=== PATIENT | male | born 1985 | race Two or more races ===

== ENCOUNTER 2021-10-12 14:24 | Emergency (ER) | payer SELFPAY ==
--- NOTE | 2021-10-12 14:27 | ED.URI ---
HPI - URI/Sore Throat General Chief Complaint: Upper Respiratory Infection Stated Complaint: drainage,runny nose,stomach ache Time Seen by Provider: 10/12/21 14:33 Source: patient and RN notes reviewed Mode of arrival: ambulatory Limitations: no limitations History of Present Illness HPI Narrative: 46-year-old male presents with concern for 5-day history of nasal drainage, postnasal drainage. He reports today he began having mild nausea with a pit in his stomach . Reports that he has had 2 negative COVID test. He denies fever, body aches, chills, sweats. He denies sore throat, sinus pain. Reports occasional headache. He denies vomiting or diarrhea. Denies constipation. He reports he was taking Sudafed, he has not taken it since yesterday because he ran out. He denies other mpom-nab-mhnqnzo medications. MD elicited complaint: rhinorrhea Related Data Allergies Allergy/AdvReac Type Severity Reaction Status Date / Time No Known Allergies Allergy Verified 10/12/21 14:33 Review of Systems Review of Systems: CONSTITUTIONAL: Denies malaise, chills, sweats, or fever. EYES: Denies visual changes, redness, or discharge. ENT: Reports rhinorrhea, congestion. Denies sinus pain, otalgia and sore throat. CARDIOVASCULAR: Denies chest pain, palpitations, or edema. RESPIRATORY: Reports occasional cough. Denies dyspnea. GASTROINTESTINAL: Reports mild abdominal pain, nausea. Denies vomiting, diarrhea SKIN: Denies rash or itching. MUSCULOSKELETAL: Denies myalgia. NEUROLOGIC: Reports headache. All systems reviewed & are unremarkable except as noted in HPI and below PMFSH Comments At time of signature, agree with nursing past medical, surgical, social and family history. There is no relevant family history pertinent to the presenting complaint Exam Narrative: GENERAL: Well-appearing, well-nourished, and in no acute distress. HEAD: Normocephalic EYES: PERRLA, conjunctivae clear ENT: Nares clear, clear discharge. Mucous membranes moist. TM pearly castanon with sharp light reflex bilaterally; no tragal tenderness. Oropharynx not erythematous without lesions. Tonsils not enlarged and without exudate, no drooling, no hoarseness, no trismus, uvula midline. NECK: Supple. No lymphadenopathy CHEST: Clear to auscultation, breath sounds equal. No wheezing, rhonchi, rales, or stridor. No respiratory distress, speaks in full sentences. HEART: Regular rate and rhythm. No murmur heard. ABDOMEN: Soft, flat, nondistended. Mild epigastric tenderness. No guarding, rebound tenderness, or rigid. No pulsatilla masses. Bowel sounds present in all four quadrants. No organomegaly. Negative Payan?s sign. No periumbilical tenderness. No Supra public tenderness or distension. SKIN: Warm, dry, no rash. NEURO: Alert and oriented x3. PSYCH: Normal mood and affect Course Course Emergency Course: Discussed limited diagnostic capability at [facility] for abdominal pain. Offered transfer to emergency department for further evaluation, patient does not want to be transferred to the emergency department. He understands reasons to seek further care if symptoms worsen. Patient is aware of diagnosis, understands and agrees to treatment plan. Anticipatory guidance given. Patient agrees to follow-up as directed and is aware of reasons to seek care at the emergency department. Portions of this record may have been created with voice recognition software Level of Care: Express Care Visit Vital Signs Vital signs: Reviewed. MDM - URI/Sore Throat MDM Narrative Medical decision making narrative: Differential diagnosis considered: [place] virus, strep pharyngitis, allergic rhinitis, upper respiratory tract infection, sinusitis, rhinosinusitis, nasopharyngitis. viral pharyngitis, otitis media, otitis externa, pneumonia, bronchitis, viral cough syndrome, viral syndrome, and influenza. No evidence of pancreatitis, AAA, cholecystitis, choledocholithiasis, cholangitis, mesenteric
[2021-10-12 14:30] VITALS: BP 137/83; PULSE 78; RESP 12; TEMP 37; O2SAT 100
== END 2021-10-12 14:52 | disposition home or self-care (01) ==
PROVIDERS: Emergency Provider Nurse Practitioner
DX: B34.9 Viral infection, unspecified (principal)
CPT/HCPCS: 99213; G0463

== ENCOUNTER 2024-07-16 15:39 | Emergency (ER) | payer OTHER, SELFPAY ==
--- NOTE | ~2024-07-16 | XR_ITS ---
XR ankle LT min 3V Ordering provider: GENARO Smith History: . Rolled lt ankle yesterday. Lateral pain . Comparison: None. FINDINGS: BONES: No acute fracture or dislocation. JOINT SPACES: The ankle mortise is normal. SOFT TISSUES: Normal. IMPRESSION: No acute osseous abnormality left ankle. Reviewed, dictated and finalized at location A.
[2024-07-16 15:54] VITALS: BP 144/95; PULSE 69; RESP 18; TEMP 36.4; O2SAT 99
--- NOTE | 2024-07-16 17:07 | ED_ITS ---
HPI - General Adult General Chief complaint: Extremity Injury, Lower Stated complaint: Left Ankle Injury Source: patient Mode of arrival: ambulatory Limitations: no limitations History of Present Illness HPI narrative: Patient presents for evaluation of left ankle pain. Symptom onset yesterday. 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 He fell and hit his back against the door knob. He then fell to the ground. He did not hit his head. No LOC. he denies any back pain. He rates his pain in his left ankle is 3/10 severity. He has associated swelling. Denies loss of range of motion but movement makes his symptoms worse. He took Tylenol and 800 mg of ibuprofen. He is not sure whether either made considerable difference in his pain level. He is able to bear weight. Related Data Home Medications ?Medication ?Instructions ?Recorded ?Confirmed ?Last Taken ?Type No Home Medications 07/16/24 07/16/24 Unknown History Allergies Allergy/AdvReac Type Severity Reaction Status Date / Time No Known Allergies Allergy Verified 07/16/24 16:05 Review of Systems Review of Systems: CONSTITUTIONAL: Denies fever, chills, or sweats. EYES: Denies visual changes, redness, or discharge. ENT: Denies rhinorrhea, congestion, sore throat, or otalgia. CARDIOVASCULAR: Denies chest pain, palpitations, or edema. RESPIRATORY: Denies cough or dyspnea. GASTROINTESTINAL: Denies abdominal pain, nausea, vomiting, or diarrhea. GENITOURINARY: Denies dysuria or hematuria. SKIN: Denies rash or itching. MUSCULOSKELETAL: Reports left ankle pain and swelling. Denies other joint pain. NEUROLOGIC: Denies headache, numbness, dizziness, or weakness. PSYCHIATRIC: Denies anxiety or depression. 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 HEAD: Normocephalic, atraumatic. EYES: PERRLA and EOMI. ENT: Nares clear, no rhinorrhea or epistaxis. Mucous membranes moist. Orophar ynx without tonsillar hypertrophy exudate or other lesions. Bilateral TMs pearly castanon nonbulging NECK: Supple. No adenopathy or masses. No carotid bruits or JVD CHEST: Clear to auscultation. No respiratory distress. No wheezes rales or rhonchi HEART: Regular rate and rhythm. No murmur heard. Normal peripheral pulses. ABDOMEN: Soft, nontender, nondistended, normal active bowel sounds. EXTREMITIES:There is trace swelling noted to left ankle. No crepitus or deformity. There is tenderness to anterior aspect of the left ankle. Able to dorsi and plantarflex the left foot but doing so reproduces pain in the left ankle. SKIN: Warm, dry, no rash. NEURO: No focal deficits. Alert and oriented x3. PSYCH: Normal mood and affect. Course Course Emergency Course: This is a 38 yr old male who presented for evaluation of left ankle pain. X ray negative for fracture. Exam is consistent with sprain. Recommend NSAIDs for pain. Advised on RICE therapy. Provided with Al wrap. Follow-up with primary provider. Go to the ER for worsening symptoms. Patient in agreement with plan of care. Level of Care: Express Care Visit Vital Signs Vital signs: Vital Signs Temperature 36.4 C 07/16/24 15:54 Pulse Rate 69 07/16/24 15:54 Respiratory Rate 18 07/16/24 15:54 Blood Pressure 144/95 H 07/16/24 15:54 Pulse Oximetry 99 07/16/24 15:54 Oxygen Delivery Room Air 07/16/24 15:54 Temperature 36.4 C 07/16/24 15:54 Pulse Rate 69 07/16/24 15:54 Respiratory Rate 18 07/16/24 15:54 Blood Pressure 144/95 H 07/16/24 15:54 Pulse Oximetry 99 07/16/24 15:54 Oxygen Delivery Room Air 07/16/24 15:54 Medical Decision Making Vital Signs Vital Signs: Vital Signs Temperature 36.4 C 07/16/24 15:54 Pulse Rate 69 07/16/24 15:54 Respiratory Rate 18 07/16/24 15:54 Blood Pressure 144/95 H 07/16/24 15:54 Pulse Oximetry 99 07/16/24 15:54 Oxygen Delivery Room Air 07/16/24 15:54 Temperature 36.4 C 07/16/24 15:54 Pulse Rate 69 07/16/24 15:54 Respiratory Rate 18 07/16/24 15:54 Blood Pressure 144/95 H 07/16/24 15:54 Pulse Oximetry 99 07/16/24 15:54 Oxygen Delivery Room Air 07/16/24 15:54 Imaging Data Radiologist's impression: XR ankle LT min 3V Ordering provider: GENARO Smith History: . Rolled lt ankle yesterday. Lateral pain . Comparison: None. FINDINGS: BONES: No acute fracture or dislocation. JOINT SPACES: The ankle mortise is normal. SOFT TISSUES: Normal. IMPRESSION: No acute osseous abnormality left ankle. Discharge Plan Discharge Clinical Impression: Left ankle sprain Patient Disposition: Home, Self-Care Condition: Stable Instructions: Antibiotic Form, Ankle Sprain (ED) Additional Instructions: APPLYING ICE 20 MINUTES ON, 20 MINS OFF SHOULD HELP WITH PAIN AND SWELLING YOU MAY TAKE 800 MG IBUPROFEN THREE TIMES PER DAY WITH FOOD FOR PAIN AND SWELLING ELEVATING YOUR LEG AND WEARING THE AL WRAP SHOULD ALSO HELP WITH YOUR SYMPTOMS Patient Language: Turkish Prescriptions: No Action No Home Medications Follow-up/Referrals: Graeme Salazar MD [Physician] - Time of Disposition: 17:00
--- OUTSIDE RECORDS SUMMARY | 2024-07-16 18:10 | XMS_ITS | Data Portability ---
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 Detai ls LastModified Time None Recorded Concern Status LastModified by Organization Details LastModified Time None Recorded Advance Directives Directive None Recorded Payers Encounter Date Sequence Insurance Name Policy Number Policy Barba Covered Member ID Barba Member ID Guarantor Name 03/05/2020 2 *SELF PAY* Bh arat Roman Bhooshan 05/06/2021 1 [facility] [id number] Wes Bhooshan [id number] Wes [facility] Bhooshan 02/20/2023 1 [facility] [id number] Wes Kamca Bhooshan [id number] Wes Kamal Bhooshan 01/11/2024 1 [facility] (MEDICAID HMO) [id number] 0003 Kamal B Bhooshan [id number] [facility] 02/22/2024 1 [facility] (MEDICAID HMO) [id number] [facility] B Bhooshan [id number] [facility] Bhooshan Notes Date Note Type Note Provider Name and Address Organization Details Recorded Time 03/05/2020 text/html COVID ScreeningReported bypatient.Onset/Durati on of fever:no fever Associated Symptoms:no cough; no shortness of breathCOVID-19 Symptoms August 2019Reported bypatient.COVID-19 Signs and Symptomscough resolved; fever resolved; shortness of breath resolved; chills resolved; repeated shaking with chills resolved; muscle pain resolved; headache resolved; sore throat resolved; loss of taste or smell resolved; vomiting or diarrhea resolved; fatigue resolved; anorexia resolved Contacts and Exposureclose contact with a confirmed or suspected case of COVID-19; lives in the same household as a person with COVID-19 Associated Symptoms:no sputum production; no wheezing; no runny nose; no vomiting; no diarrhea; no body aches; no nausea; no change in mental status; no hypotension; no tachycardia pt denies symptoms his is positive KB SUÁREZ NP Attn: [address]ing[address] [place], [address], [facility] 03/05/2020 14:55:32 05/06/2021 text/html Rectal BleedingReported bypatient.Quality:pain less Duration:present for 1-6 months Timing:better Context:occurs with bowel movement; no f/h of colon disease Associated Symptoms:no straining; no diarrhea; no cramping New pt is here to establish care . pt has noticed lump on R/scrotal area , has mild discomfort , denied any other complaints Yamil Rider MD Attn: Accounting[address] [facility], [place], [address], [facility] 05/07/2021 12:08:05 02/20/2023 text/html last seen more t oden a year ago /did not do any labs yet Pt is here for hospital f/u for scrotal pain/L following injured at work 6 wks ago 01/05/23 . pt went to work marissa MARTINEZ and had normal us and also seen by urologistpt still complains pain in L/side of scrotum 10/31, flare ups with standing and fast walking . pt wants to get second opinion from another urologist . 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 pt went to work marissa MARTINE[employer] and had normal us and also seen by urologistpt still complains pain in L/side of scrotum 10/31, flare ups with standing and fast walking . pt wants to get second opinion from another urologist . 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
--- OUTSIDE RECORDS SUMMARY | 2024-07-16 18:10 | XMS_ITS | Clinical Summary ---
Author Organization [facility] Address [address] [place] [address] Phone Care Team Providers Care Airport Traffic Controller Name Role Phone Susie Robison PAC Primary Care Pro vider Skinny Johnson MD Unavailable Allergies No known active allergies Medications HYDROcodone-darci taminophen (NORCO) 5-325 MG TabletIndicatio ns:Pain in both testicles Take 1 Tablet by mouth 2 times daily as needed for Moderate or more severe pain. 30 Tablet 3 Active Additional Information Patient not taking.Reported on 03/06/2024 busPIRone HCl 7.5 MG Tablet Take 7.5 mg by mouth. Active atorvastatin (LIPITOR) 20 MG Tablet 4 Active Active Problems No known active problems Family History Relation Name Status Comments Father Other Mother Alive Social History Tobacco Use Types Packs/Day Years Used Date Smoking Tobacco: Never Smokeless Tobacco: Never Tobacco Cessation:Counseling Given: No Alcohol Use Standard Drinks/Week Comments Yes 0 (1 standard drink = 0.6 oz pur e alcohol) Sex and Gender Information Value Date Recorded Sex Assigned at Not on file Legal Sex Male 11:46 AM CDT Gender Identity Not on file Sexual Orientation Not on file Last Filed Vital Signs Vital Sign Reading Time Taken Comments Blood Pressure 141/92 03/06/2024 8:31 AM [employer] Pulse 80 03/06/2024 8:31 AM [employer] Temperature 36.5 C (97.7 F) 02/07/2023 10:33 AM CDT Respiratory Rate 19 03/06/2024 8:31 AM [employer] Oxygen Saturation 99% 03/06/2024 8:31 AM [employer] Inhaled Oxygen Concentration - - Weight 98 kg (216 lb) 03/06/2024 8:31 AM [employer] Height 175.3 cm (5' 9 ) 03/06/2024 8:31 AM [employer] Body Mass Index 31.9 03/06/2024 8:31 AM [employer] Plan of Treatment Health Maintenance Due Date Last Done Comments Hepatitis C Virus (HCV) Screening 1984 TdaP Immunization 1984 Hepatitis B Immunization (1 of 3 - 19+ 3-dose series) 07/23/2003 Influenza Immunization (#1) 2023 SARS-COV-2 Immunization (2 - 2023- season) 2023 07/27/2020 Respiratory Syncytial Virus (RSV) Immunization (Adult) (1 - 1-dose 75+ series) 07/23/2059 Meningococcal Immunization (ACWY) Aged Out No longer eligible based on patient's age to complete this topic Pneumococcal Immunization Combined Aged Out No longer eligible based on patient's age to complete this topic Rotavirus Immunization Aged Out No lo nger eligible based on patient's age to complete this topic [place] [address] [place] [address] MEDICAID [place] Care Teams Airport Traffic Controller Relationship Specialty Start Date End Date Susie Robison PAC [address] [place] [address] PCP - General Physician Baggage Checker 01/17/23 Skinny Johnson MD [address] [address] Consulting Physician Urology 03/04/24
== END 2024-07-16 17:00 | disposition home or self-care (01) ==
PROVIDERS: Emergency Provider Nurse Practitioner
DX: S93.402A Sprain of unspecified ligament of left ankle, initial encounter (principal); W18.09XA Striking against other object with subsequent fall, initial encounter; Y93.01 Activity, walking, marching and hiking
CPT/HCPCS: 73610; 99213; G0463

== ENCOUNTER 2024-12-16 08:33 | Emergency (ER) | payer OTHER, SELFPAY ==
--- NOTE | 2024-12-16 08:34 | ED_ITS ---
HPI - General Adult General Chief complaint: Headache Stated complaint: Migraine Time Seen by Provider: 12/16/24 08:41 Source: patient, RN notes reviewed and old records reviewed Mode of arrival: ambulatory Limitations: no limitations History of Present Illness HPI narrative: 39-year-old male presents to the [facility] with complaints of a migraine headache. Has a history of migraines when the seasons change. States it feels like a typical headache but lasting a little bit longer. States that the headache was worse yesterday. Did vomit 1 time. Denies any blurry vision or change in vision. No known numbness or tingling in extremities. Facial symmetry is noted. Did take 1 ibuprofen at 6:00 a.m. this morning. Patient states that he had positive exposure to COVID. Onset (ago): day(s) (1) Treatments prior to arrival: NSAID Related Data Home Medications ?Medication ?Instructions ?Recorded ?Confirmed ?Last Taken ?Type No Home Medications 07/16/24 12/16/24 U nknown History Allergies Allergy/AdvReac Type Severity Reaction Status Date / Time No Known Allergies Allergy Verified 12/16/24 08:44 Review of Systems Review of Systems: All systems reviewed & are unremarkable except as noted in HPI and below Constitutional: Constitutional: Reports as per HPI, Denies fatigue, Denies fever(s), Reports headache(s) and Denies lethargy ENT: Reports system reviewed and no additional complaints, except as documented Cardiovascular: Cardiovascular: Reports no additional cardiovascular complaints, Denies chest pain and Denies dyspnea Respiratory: Respiratory: Reports no additional respiratory complaints, Denies chest congestion, Denies cough and Denies dyspnea Musculoskeletal: Musculoskeletal: Reports no additional musculoskeletal com plaints Integumentary/Breasts: Skin/Breast: Reports system reviewed and no additional complaints, except as docu Neurologic: Reports as per HPI and Reports headache(s) PMFSH Past Medical History Medical History No pertinent past medical history Surgical History Surgical History No pertinent past surgical history Family History Family History Mother Family history non-contributory Social History Social History Smoking status: Never smoker Substance use: never 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 There is no relevant family history pertinent to the patient complaint. Exam Const: General: cooperative, healthy appearing, comfortable, no acute dis tress, well developed, alert and well nourished Nutritional Appearance: well nourished Orientation/consciousness: patient oriented x3 Limitations: no limitations HENMT: Head: normal to inspection Ears: hearing grossly normal bilaterally, external ears normal, TM's normal bilaterally, EAC's normal, mastoids normal and no periauricular adenopathy Face/Nose/Sinus: Normal external nose present Mouth: Yes Normal oral and palatal mucosa present, Yes lip normal, Yes tongue normal and Yes moist mucous membranes Throat: posterior oropharynx normal, uvula midline and no uvular edema Eyes: General: appearance normal, both eyes and all related structures Alignment and Position: alignment normal Neck: Neck: normal visual inspection, full ROM, no lymphadenopathy and no meningeal signs Chest: Chest palpation & inspection: normal inspection of the chest Resp: Effort & Inspection: normal respiratory effort and able to speak in complete sentences Auscultation: clear to auscultation bilaterally, no crackles, no rales, no rhonchi and no wheezes Cardio: Rate: regular rate Skin: General skin exam: normal color and no rashes or lesions noted Neuro: General: patient oriented x3, gait normal, moves all extremities and no meningeal signs Cranial nerves: Yes CN's II-XII intact bilaterally Cognition (Neuro): normal cognition Speech: normal speech Gait exam (Neuro): Normal gait present Extrem: General: normal to inspection, full ROM, capillary refill normal and normal gait Psych: Appearance: grossly normal and well kempt Mental Status: mental status grossly normal Speech and movement: Normal speech and movement present and Clear speech present Affect: normal affect Attitude: cooperative Course Course Level of Care: Express Care Visit Vital Signs Vital signs: Vital Signs Temperature 97.7 F 12/16/24 08:35 Pulse Rate 76 12/16/24 08:35 Respiratory Rate 20 12/16/24 08:35 Blood Pressure 137/100 H 12/16/24 08:35 Pulse Oximetry 99 12/16/24 08:35 Oxygen Delivery Room Air 12/16/24 08:35 Temperature 97.7 F 12/16/24 08:35 Pulse Rate 76 12/16/24 08:35 Respiratory Rate 20 12/16/24 08:35 Blood Pressure 137/100 H 12/16/24 08:35 Pulse Oximetry 99 12/16/24 08:35 Oxygen Delivery Room Air 12/16/24 08:35 Reviewed Medical Decision Making MDM Narrative Medical decision making narrative: Patient sitting comfortably in exam room. Nontoxic, vitals stable. Patient in no acute distress Patient presents with a headache that was worse yesterday, better today. States that he has a history of migraines during weather changes. Has had a significant change in weather recently. Patient denies any red flag symptoms. Patient offered patient a Toradol which he is declining at this time, states that he does not like needles. Patient is appropriate for outpatient treatment with close follow-up Discharge instructions reviewed with patient, as well as provided in writing per nursing staff. The instructions also include specific and strict return/GO TO THE ER as well as f/u information. All questions have been answered, and the patient deny any further questions with discharge and discharge plan. Some parts of this dictation were generated by voice recognition software and may contain typographical and/or grammatical inaccuracies. Differential Diagnosis Differential Diagnosis: Acute headache, sinus, flu, COVID, migraine Medical Records Medical records reviewed: Yes I reviewed the external patient's medical records. Vital Signs Vital Signs: Vital Signs Temperature 97.7 F 12/16/24 08:35 Pulse Rate 76 12/16/24 08:35 Respiratory Rate 20 12/16/24 08:35 Blood Pressure 137/100 H 12/16/24 08:35 Pulse Oximetry 99 12/16/24 08:35 Oxygen Delivery Room Air 12/16/24 08:35 Temperature 97.7 F 12/16/24 08:35 Pulse Rate 76 12/16/24 08:35 Respiratory Rate 20 12/16/24 08:35 Blood Pressure 137/100 H 12/16/24 08:35 Pulse Oximetry 99 12/16/24 08:35 Oxygen Delivery Room Air 12/16/24 08:35 Reviewed Lab Data Lab results reviewed: Yes I reviewed the patient's lab results. Labs: Lab Results 12/16/24 Range/Units 09:11 POC SARS CoV-2 Ag Negative (Negative) Reviewed Critical Care Time Critical Care Time Critical Care Time: No Discharge Plan Discharge Clinical Impression: History of migraine Headache Qualifiers: Headache type: unspecified Headache chronicity pattern: acute headache Patient Disposition: Home Condition: Stable Instructions: Migraine Headache (ED), Acute Headache (ED) Additional Instructions: Rest in a cool dark room Avoid screen time to include cell phones, computers for 24 hours Today your COVID test was negative Alternate 600 mg of ibuprofen and 650 mg of Tylenol Follow-up with primary care provider Today your blood pressure was 137/100 For new or worsening symptoms go directly to the emergency room Patient Language: Setswana Prescriptions: No Action No Home Medications Follow-up/Referrals: UNKNOWN,DOCTOR [Non-Staff] Stand Alone Forms: Work/School Release IP Time of Disposition: 09:03
[2024-12-16 08:35] VITALS: BP 137/100; PULSE 76; RESP 20; TEMP 36.5; O2SAT 99
[2024-12-16 09:14] LABS: EDCOVIDSCREEN Negative (Negative)
== END 2024-12-16 09:19 | disposition home or self-care (01) ==
PROVIDERS: Emergency Provider Nurse Practitioner
DX: R51.9 Headache, unspecified (principal); Z20.822 Contact with and (suspected) exposure to COVID-19
CPT/HCPCS: 87426; 99212; G0463

== ENCOUNTER 2024-12-25 09:32 | Emergency (ER) | payer OTHER, SELFPAY ==
--- OUTSIDE RECORDS SUMMARY | 2023-02-08 09:00 | XMS_ITS | Continuity of Care Document ---
Author Organization [employer] Address [address] [place] [address] Phone Care Team Providers Care Vascular Neurologist Name Role Phone Sandro Dixon MD Unavailable Unavailable Allergies, Adverse Reactions, Alerts Substance Reaction Status Criticality No Known Allergies Active No Inform ation Procedures Procedure Date OFFICE [id number] Advance Directives Directive Yes / No Effective Date File Name No Information Encounters Encounter Description Practice Location Reason(s) For Visit Diagnoses Date Provider Providers Copied on Encounter OFFICE [id number] ILED [facility], [address], [place], [place], [id number], tel:[phone] Urology [place] left testicular pain (chief complaint) Left testicular pain Destiny [address]. [address], [address] [address], [place], [place], [facility], . tel:[phone] Referring Provider: Danis Yu [address] [address], [place], [place], [facility]. tel:[phone] Family History Family Member Type Diagnosis Age At Onset No Information Payers Payer name Insurance type Covered alliance party ID Authoriza tion(s) INSURANCE NOT IN SYSTEM [id number] Social History Type Description Quantity Date Captured Comments Alcohol Use Details Unknown Caffeine Use Details Unknown Tobacco Use Status Current non-smoker Smoking Status Never smoker Non-Smoking Tobacco Use Details : No Details Available : No Details Available Sex Male Sexual Orientation Straight or heterosexual Gender Identity Male Vital Signs Date / Time: Height Weight BMI Pulse Rate Blood Pressure Temperature Respiratory Rate Body Surface Area Head Circumference Head Circ. Percentile Wt./Jos. Percentile BMI percentile Pulse Ox Inhaled Ox 1:28 PM 70.00 in 92.986 kg (205.00 lbs) 29.4 1 kg/m parth (2) Chief Complaint And Reason For Visit From encounter dated '02/08/2023 14:00'. left testicular pain (chief complaint). Description: Patient presents today for a consultation and evaluation of a left testicular pain as requested by himself.CHIEF COMPLAINT:Left testicular pain.HISTORY OF PRESENT ILLNESS:Wes Miranda is a 37-year-old male who presents today for a consultationand evaluation of a left testicular pain.The patient was injured at work on 01/05/2023. 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 He reports that the lefttesticle was hit 3 times. He had pain when he went to work the day after the incident. He had an ultrasound done. He has not had children before. He reports irritation from the pressure of the ultrasound. He reports improvement with his symptoms. He reports that he tries to exercise, but he has notbeen because he does not want to aggravate anything. He reports that he had ejaculated. He notes good urination. He reports that he was given a prescription for Tylenol when he went to the urgent care, but he does not take it. He reports that the first time he takes it, it works great. 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 Reason For Referral Reason For Referral No Information History Of Present Illness Encounter Date Complaint History Of Prese nt Illness left testicular pain Patient pre sents today for a consultation and evaluation of a left testicular pain as requested by himself.CHIEF COMPLAINT:Left testicular pain.HISTORY OF PRESENT ILLNESS:Wes Miranda is a 37-year-old male who presents today for a consultation and evaluation of a left testicular pain.The patient was injured at work on 01/05/2023. 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 He reports that the left testicle was hit 3 times. He had pain when he went to work the day after the incident. He had an ultrasound done. He has not had children before. He reports irritation from the pressure of the ultrasound. He reports improvement with his symptoms. He reports that he tries to exercise, but he has not been because he does not want to aggravate anything. He reports that he had ejaculated. He notes good urination. He reports that he was given a prescription for Tylenol when he went to the urgent care, but he does not take it. He reports that the first time he takes it, it works great. 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 Functional Status Date Functional Assessmen t No Information Instructions Date Instruction Additional Infor arian patient may return t o work. Recommend NSAIDs as needed. Physical exam normal.ATTESTATION:This note has been created using [employer] and was completed in the EHR by Amanda Cueto. Related to Left testicular pain Assessments Type Assessment Date assessment Left testicular pain Patient Care Teams Name Effective Dates (start - stop) Status Members No Information
--- OUTSIDE RECORDS SUMMARY | 2023-02-08 09:00 | XMS_ITS | Continuity of Care Document ---
Author Organization [employer] Address [address] [place] [address] Phone Care Team Providers Care Pyrometer Mechanic Name Role Phone Sandro Dixon MD Unavailable Unavailable Allergies, Adverse Reactions, Alerts Substance Reaction Status Criticality No Known Allergies Active No Inform ation Procedures Procedure Date OFFICE [id number] Advance Directives Directive Yes / No Effective Date File Name No Information Encounters Encounter Description Practice Location Reason(s) For Visit Diagnoses Date Provider Providers Copied on Encounter OFFICE [id number] ILED [facility], [address], [place], [place], [id number], tel:[phone] Urology [place] left testicular pain (chief complaint) Left testicular pain Destiny [address]. [address], [address] [address], [place], [place], [facility], . tel:[phone] Referring Provider: Danis Yu [address] [address], [place], [place], [facility]. 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 Functional Status Date Functional Assessmen t No Information Instructions Date Instruction Additional Infor arian patient may return t o work. Recommend NSAIDs as needed. Physical exam normal.ATTESTATION:This note has been created using [employer] by [employer] and was completed in the EHR by Amanda Cueto. Related to Left testicular pain Assessments Type Assessment Date assessment Left testicular pain Patient Care Teams Name Effective Dates (start - stop) Status Members No Information
[2024-12-25 09:38] VITALS: BP 148/93; PULSE 95; RESP 20; TEMP 36.4; O2SAT 100
--- NOTE | 2024-12-25 09:44 | ED.HA ---
HPI - Headache General Chief Complaint: Headache Stated Complaint: Headache/Light Headed/Neck Pain Time Seen by Provider: 12/25/24 09:46 Mode of arrival: ambulatory Limitations: no limitations History of Present Illness HPI Narrative: 39-year-old male presents with concern for headache. Reports he has been pain in in the last week for migraine. Reports he has been taking ibuprofen. He reports a long history of migraine but they seem to get worse recently. He has not taken any migraine medications recently because they have not worked for him in the past. He reports symptoms started yesterday then this morning he had light sensitivity and an episode of vomiting. Reports tension in the back of his head. MD elicited complaint: headache Related Data Allergies Allergy/AdvReac Type Severity Reaction Status Date / Time No Known Allergies Allergy Verified 12/25/24 09:49 Review of Systems Review of Systems: CONSTITUTIONAL: Denies malaise, chills, sweats, or fever. EYES: Denies visual changes. Reports light sensitivity ENT: Denies rhinorrhea, congestion, sinus pain, otalgia or sore throat. GASTROINTESTINAL: Denies abdominal pain, diarrhea, bloody, or mucous stools. Reports nausea vomiting MUSCULOSKELETAL: Reports tension in the back of the head NEUROLOGIC: Denies numbness, weakness. Reports headache. PSYCHIATRIC: Denies anxiety or depression. 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 There is no relevant family history pertinent to the presenting complaint Exam Narrative: GENERAL: Well-appearing, well-nourished, and in no acute distress. HEAD: Normocephalic, atraumatic. EYES: PERRLA, sclera clear, and EOMI. No nystagmus. ENT: Nares clear. Mucous membranes moist. TM pearly castanon with sharp light reflex bilaterally; no tragal tenderness. Oropharynx without erythema or lesions. Tonsils not enlarged and without exudate. NECK: Supple. No lymphadenopathy. CHEST: No respiratory distress. Clear to auscultation. No bony deformities, no asymmetry. Speaks in full sentences. HEART: Regular rate and rhythm. No murmur heard. Normal peripheral pulses. EXTREMITIES: Normal range of motion. No edema. Normal strength and sensation. SKIN: Warm, dry, no visible rash. NEURO: Alert and oriented x3. No focal deficits. Cranial nerves II through XII grossly intact PSYCH: Normal mood and affect Course Course Emergency Course: Patient is aware of diagnosis, understands and agrees to treatment plan. Anticipatory guidance given. Patient agrees to follow-up as directed and is aware of reasons to seek care at the emergency department. Portions of this record may have been created with voice recognition software Level of Care: Express Care Visit Vital Signs Vital signs: Vital Signs Temperature 97.6 F 12/25/24 09:38 Pulse Rate 95 12/25/24 09:38 Respiratory Rate 20 12/25/24 09:38 Blood Pressure 148/93 H 12/25/24 09:38 Pulse Oximetry 100 12/25/24 09:38 Oxygen Delivery Room Air 12/25/24 09:38 Temperature 97.6 F 12/25/24 09:38 Pulse Rate 95 12/25/24 09:38 Respiratory Rate 20 12/25/24 09:38 Blood Pressure 148/93 H 12/25/24 09:38 Pulse Oximetry 100 12/25/24 09:38 Oxygen Delivery Room Air 12/25/24 09:38 Reviewed. MDM - Headache MDM Narrative Medical decision making narrative: I evaluated this patient in the express care. History is obtained from patient who is an independent historian and physical exam was performed.? Available medical records were reviewed. ? Exam findings and relevant testing show no acute concerns or changes; patient is non-toxic appearing and is in no distress. ? Differential diagnosis and treatment plan were discussed with the patient. Patient agrees with discussion and after shared medical decision making agrees with plan of care. All questions were answered to the patient's satisfaction. Patient is appropriate for outpatient treatment and follow-up. Differential Diagnosis Differential diagnosis: Likely migraine, tension headache and headache Critical Care Time Critical Care Time Critical Care Time: No Discharge Plan Discharge Clinical Impression: Headache Patient Disposition: Home Condition: Stable Instructions: Acute Headache (ED) Additional Instructions: 1) Please follow-up with your primary care doctor for further evaluation. 2) If you have any worsening of symptoms or any other urgent concerns please go to the ER. 3) Please take medications as prescribed and continue taking your home medications as usual. 4) Please read and follow information included in discharge instructions. Patient Language: Sao Tomean Prescriptions: New tizanidine 4 mg capsule 4 mg PO Q8H PRN (Reason: muscle spasticity) Qty: 10 0RF ondansetron 4 mg tablet,disintegrating 4 mg PO Q8H PRN (Reason: nausea and vomiting) Qty: 10 0RF Follow-up/Referrals: Britt Noel RN [Primary Care Provider, Nursing] Stand Alone Forms: Work/School Release IP Time of Disposition: 09:54
--- OUTSIDE RECORDS SUMMARY | 2024-12-25 10:08 | XMS_ITS | Clinical Summary ---
Author Organization [facility] Address [address] [place] [address] Phone Care Team Providers Care Insurance Healthcare Consultant Name Role Phone Susie Robison PAC Primary [...] Comments Blood Pressure 141/92 03/06/2024 8:31 AM REHABILITATION DIRECTOR Pulse 80 03/06/2024 8:31 AM REHABILITATION DIRECTOR Temperature 36.5 C (97.7 F) 02/07/2023 10:33 AM CDT Respiratory Rate 19 03/06/2024 8:31 AM REHABILITATION DIRECTOR Oxygen Saturation 99% 03/06/2024 8:31 AM REHABILITATION DIRECTOR Inhaled Oxygen Concentration - - Weight 98 kg (216 lb) 03/06/2024 8:31 AM REHABILITATION DIRECTOR Height 175.3 cm (5' 9) 03/06/2024 8:31 AM REHABILITATION DIRECTOR Body Mass Index 31.9 03/06/2024 8:31 AM REHABILITATION DIRECTOR Plan of Treatment Health Maintenance Due Date Last Done Comments Hepatitis C Virus (HCV) Screening 1984 TdaP Immunization 1984 Hepatitis B Immunization (1 of 3 - 19+ 3-dose series) 07/23/2003 Human Papillomavirus (HPV) Immunization (1 - 3-dose SCDM series) 07/23/2011 SARS-COV-2 Immunization ( - season) 2023 07/27/2020 Influenza Immunization (#1) 2024 Respiratory Syncytial Virus (RSV) Immunization (Adult) (1 - 1-dose 75+ series) 07/23/2059 Meningococcal Immunization (ACWY) Aged Out No longer eligible based on patient's age to complete this topic Pneumococcal Immunization Combined Aged Out No longer eligible based on patient's age to complete this topic Rotavirus Immunization Aged Out No lo nger eligible based on patient's age to complete this topic Insurance MEDICAID [place] Care Teams Insurance Healthcare Consultant Relationship Specialty Start Date End Date Susie Robison PAC [id number] [place] [address] PCP - General Physician Cash Accountant 01/17/23 Skinny Johnson MD #[address] [phone] Consulting Physician Urology 03/04/24
== END 2024-12-25 09:57 | disposition home or self-care (01) ==
PROVIDERS: Emergency Provider Nurse Practitioner; PCP Nurse Practitioner Family
DX: R51.9 Headache, unspecified (principal); Z79.1 Long term (current) use of non-steroidal anti-inflammatories (NSAID)
CPT/HCPCS: 99213; G0463

== ENCOUNTER 2025-04-09 08:08 | Outpatient (CLI) | payer OTHER, SELFPAY ==
--- NOTE | ~2025-04-09 | CT_ITS ---
EXAMINATION: CT brain wo/w con, 04/09/2025 8:45 EYEWEAR CONSULTANT HISTORY: intractable migraine wo status migrainosus COMPARISON: No comparisons available. Technique: Axial images obtained of the brain without and with intravenous contrast. One or more of the following dose reduction techniques were used: automated exposure control, adjustment of the mA and/or kV according to patient size, use of iterative reconstruction technique. Findings: No acute infarct or parenchymal hemorrhage. No abnormal enhancement identified No abnormal mass or mass effect. No midline shift. No extra-axial fluid collections. No hydrocephalus. Mastoid air cells unremarkable. Moderate left maxillary and bilateral ethmoidal sinusitis. No acute fracture. No significant facial or scalp soft tissue swelling evident. No radiopaque foreign body is seen. Impression: 1.No acute intracranial abnormality. Reviewed, dictated and finalized at location P. EAR CONSULTANT Impression: 1.No acute intracranial abnormality.
--- OUTSIDE RECORDS SUMMARY | 2025-04-09 08:20 | XMS_ITS | Clinical Summary ---
Author Organization [facility] Address [address] [place] [address] Care Team Providers Care Commissary Worker Name Role Phone Unavailable Primary Care Provider Unavailabl e Social History Tobacco Use Types Packs/Day Years Used Date Smoking Tobacco: Never Assessed Sex and Gender Information Value Date Recorded Sex Assigned at Not on file Legal Sex Male 1:46 PM PEDIATRICIAN Gender Identity Not on file Sexual Orientation Not on file Plan of Treatment Upcoming Encounters Date Type Department Care Team (Late st Contact Info) Description 04/15/2025 1:00 PM PEDIATRICIAN Office Visit [facility] Multispecial[facility] - [facility] [address] [facility], [address] [place] [phone] Demetria Samuel NP 3 [facility] [address] [place] [address] Health Maintenance Due Date Last Done Comments Annual Physical 07/23/1987 Hepatitis C 2002 DTaP, Tdap and Td Vaccines ( 1 - Tdap) 07/23/2003 Hepatitis B Vaccines (1 of 3 - 19+ 3-dose series) 07/23/2003 HPV Vaccines (1 - 3-dose SCD M series) 07/23/2011 COVID-19 Vaccine (2024-2 6 season) 2024 Influenza Adult (#1) 2025 Hepatitis A Vaccines Aged Out No long er eligible based on patient's age to complete this topic Meningococcal B Vaccine Aged Out No l onger eligible based on patient's age to complete this topic Meningococcal Vaccine Aged Out No jacklyn royce eligible based on patient's age to complete this topic Pneumococcal Vaccine: Pediat rics (0 to 5 Years) and At-Risk Patients (6 to 49 Years) Aged Out No longer eligible b ased on patient's age to complete this topic RSV Immunizations Under 20 Months Aged Out No longer eligible based on patient's age to complete this topic Insurance [place] MEDICAID
--- OUTSIDE RECORDS SUMMARY | 2025-04-09 08:20 | XMS_ITS | Clinical Summary ---
Author Organization [facility] Address [address] [place] [address] Phone Care Team Providers Care Billing Representative Name Role Phone Skinny Johnson MD Unavailable Britt Noel APRN, [employer] Primary Care Provider Allergies No known active allergies Medications HYDROcodone-darci taminophen (NORCO) 5-325 MG TabletIndicatio ns:Pain in both testicles Take 1 Tablet by mouth 2 times daily as needed for Moderate or more severe pain. 30 Tablet 01/18/20 23 Active Additional Information Patient not taking.Reported on 03/06/2024 busPIRone HCl 7.5 MG Tablet Take 7.5 mg by mouth. Active atorvastatin (LIPITOR) 20 MG Tablet 01/11/20 24 Active omeprazole (PriLOSEC) 20 MG CAPSULE DELAYED RELEASEIndicati ons:Gastroesoph ageal Reflux Disease Take 1 Capsule by mouth daily. Indications: Gastroesophageal Reflux Disease 90 Capsule 01/13/20 25 Active SUMAtriptan (IMITREX) 25 MG Tablet Take 1 tablet(s) every day by oral route as needed. 01/04/20 25 Active propranolol (INDERAL) 10 MG Tablet Take 1 tablet twice a day by oral route for 30 days. 01/04/20 25 Active ondansetron (ZOFRAN-ODT) 4 MG TABLET DISPERSIBLE 12/26/19 25 Active Active Problems No known active problems Encounters Date Type Department Care Team Description 01/12/2025 10:44 AM CDT - 01/12/2025 1:40 PM CDT Emergency [facility] Emergency [address] [place] [address] Amanda Esposito PAC GI bleeding Discharge Disposition: Discharged to home or Selfcare 01/12/2025 Travel from Last 3 Months Family History Relation Name Status Comments Father [...] Sign Reading Time Taken Comments Blood Pressure 134/86 01/12/2025 1:30 PM CDT Pulse 86 01/12/2025 1:30 PM CDT Temperature 36.6 C (97.9 F) 01/12/2025 10:51 AM CDT Respiratory Rate 17 01/12/2025 1:30 PM CDT Oxygen Saturation 99% 01/12/2025 1:30 PM CDT Inhaled Oxygen Concentration - - Weight 100.3 kg (221 lb 1.9 oz) 025 10:51 AM CDT Height 175.3 cm (5' 9) 01/12/2025 10:5 1 AM CDT Body Mass Index 32.65 01/12/2025 10:51 AM CDT Plan of Treatment Upcoming Encounters Date Type Department Care Team (Late st Contact Info) Description 05/02/2025 10:00 AM LUMBER PILER [facility] [place] [address] [place] [address] Lisa Alves APRN, DISTRIBUTION CLERK [address] [place] [address] Health Maintenance Due Date Last Done Comments Hepatitis C Virus (HCV) Screening 1984 TdaP Immunization 1984 Varicella Immunization (1 of 2 - 13+ 2-dose series) 1997 Hepatitis B Immunization (1 of 3 - 19+ 3-dose series) 07/23/2003 Influenza Immunization (#1) 2024 SARS-COV-2 Immunization (2 - season) 2024 07/27/2020 Respiratory Syncytial Virus (RSV) Immunization (Adult) (1 - 1-dose 75+ series) 07/23/2059 Human Papillomavirus (HPV) Immunization (No Doses Required) Completed Meningococcal Immunization (ACWY) Aged Out No longer eligible based on patient's age to complete this topic Pneumococcal Immunization Combined Aged Out No longer eligible based on patient's age to complete this topic Rotavirus Immunization Aged Out No lo nger eligible based on patient's age to complete this topic Procedures Procedure Name Priority Date/Time Associated Diagnosis Comments CT ABDOMEN PELVIS W/ CONTRAST Stat with Interpretation 01/12/2025 12:27 PM CDT URINALYSIS REFLEX IF INDICATED BY ABNORMAL RESULTS STAT 01/12/2025 12:21 PM CDT LAVENDER TOP TUBE STAT 01/12/2025 11:04 AM CDT LAVENDER TOP TUBE STAT 01/12/2025 11:04 AM CDT GOLD TOP TUBE STAT 01/12/2025 11:04 AM CDT BLUE TOP TUBE STAT 01/12/2025 11:04 AM CDT CBC WITH AUTO DIFFERENTIAL STAT 01/12/2025 11:04 AM CDT EXTRA TUBES STAT 01/12/2025 11:04 AM CDT LIPASE STAT 01/12/2025 11:04 AM CDT CMP (COMPREHENSIVE METABOLIC PANEL) STAT 01/12/2025 11:04 AM CDT COMPLETE BLOOD COUNT (CBC) WITH DIFF STAT 01/12/2025 11:[address] - ABDOMEN/PELVIS 01/12/2025 12:00 AM CDT from Last 3 Months Results * CT ABDOMEN PELVIS W/ CONTRAST (01/12/2025 12:27 PM CDT) Anatomical Region Laterality Modality Abdomen N/A Computed Tomogra phy 01/12/2025 12:2 7 PM CDT Impressions 01/12/2025 1:13 PM CDT IMPRESSION: No CT finding to explain the patient's symptoms. No acute bowel pathology evident. Normal appendix. Mild hepatic steatosis. Nonobstructing right lower pole intrarenal stone. Probable small cyst posterior right upper pole kidney can be evaluated with elective outpatient ultrasound. Narrative 01/12/2025 1:[address] ABDOMEN PELVIS W/ CONTRAST : 01/12/2025 12:27 PM DICTATING PHYSICIAN: LAURA ZHOU [facility], Later [facility]. HISTORY: As below. ADDITIONAL TECHNOLOGIST HISTORY: Abdominal pain, acute, nonlocalized, pt c/o increase mid abd pain with blood in stool x 3 weeks. pt report N/V. no hx of surgery TECHNIQUE: Multiple helical axial images were obtained through the abdomen and pelvis with contrast. Multiplanar reformats were performed. Image acquisition performed utilizing automated exposure control (AEC) and iterative reconstruction software in order to lower patient dose. IV CONTRAST TYPE AND VOLUME: Administered contrast documentation is located within the patient's electronic health record. RADIATION DOSE: DLP 623 COMPARISON: None. FINDINGS: Lung bases: Clear. ABDOMEN: Liver: Diffusely hypodense parenchyma, likely related to steatosis. No focal nodule or intrahepatic bile duct dilatation. Portal venous system is patent. Gallbladder: No evidence for wall thickening or inflammation. Spleen: Within normal limits. No evidence for splenomegaly or focal lesion. Pancreas: No focal lesion or pancreatic ductal dilatation. Adrenal glands: No focal nodule. Kidneys: Punctate nonobstructing right lower pole stone. Hypodense exophytic 12 mm lesion possibly a cyst but too small to catheterize.. No acute finding. Abdominal aorta and IVC: Abdominal aorta is normal in caliber. IVC is grossly normal. Retroperitoneum: Normal Mesentery/Peritoneum: Normal. Stomach and small bowel: Within normal limits. No evidence for obstruction. PELVIS: Free fluid: No free fluid or fluid collection. Reproductive: Normal. Bladder: Normal contour and wall thickness. Lymphadenopathy: No pathologic lymphadenopathy. Colon: Diverticulosis without evidence for diverticulitis. Appendix: Normal caliber and wall thickness. Skeletal structures and soft tissues: Age-appropriate degenerative changes. No suspicious osseous lytic or blastic process. No soft tissue abnormality. Procedure Note Laura Zhou MD - 01/12/2025 CT ABDOMEN PELVIS W/ CONTRAST : 01/12/2025 12:27 PM DICTATING PHYSICIAN: LAURA ZHOU [facility], [facility]. HISTORY: As below. 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 pt report N/V. nohx of surgery TECHNIQUE: Multiple helical axial images were obtained through the abdomen and pelviswith contrast. Multiplanar reformats were performed. Image acquisitionperformed utilizing automated exposure control (AEC) and iterativereconstruction software in order to lower patient dose. IV CONTRAST TYPE AND VOLUME: Administered contrast documentation islocated within the patient's electronic health record. RADIATION DOSE: DLP 623 COMPARISON: None. FINDINGS: Lung bases: Clear. ABDOMEN: Liver: Diffusely hypodense parenchyma, likely related to steatosis. Nofocal nodule or intrahepatic bile duct dilatation. Portal venous system ispatent. Gallbladder: No evidence for wall thickening or inflammation. Spleen: Within normal limits. No evidence for splenomegaly or focallesion. Pancreas: No focal lesion or pancreatic ductal dilatation. Adrenal glands: No focal nodule. Kidneys: Punctate nonobstructing right lower pole stone. Hypodenseexophytic 12 mm lesion possibly a cyst but too small to catheterize.. Noacute finding. Abdominal aorta and IVC: Abdominal aorta is normal in caliber. IVC isgrossly normal. Retroperitoneum: Normal Mesentery/Peritoneum: Normal. Stomach and small bowel: Within normal limits. No evidence forobstruction. PELVIS: Free fluid: No free fluid or fluid collection. Reproductive: Normal. Bladder: Normal contour and wall thickness. Lymphadenopathy: No pathologic lymphadenopathy. Colon: Diverticulosis without evidence for diverticulitis. Appendix: Normal caliber and wall thickness. Skeletal structures and soft tissues: Age-appropriate degenerativechanges. No suspicious osseous lytic or blastic process. No soft tissueabnormality. IMPRESSION: No CT finding to explain the patient's symptoms. No acute bowel pathology evident. Normal appendix. Mild hepatic steatosis.Nonobstructing right lower pole intrarenal stone. Probable small cystposterior right upper pole kidney can be evaluated with electiveoutpatient ultrasound. us Amanda Conde Page PAC IMG CT ORDERABLES Final Resu lt * Urinalysis w/ Reflex (01/12/2025 12:21 PM CDT) SPECIFIC GRAVITY 1.010 1.003 - 1.030 01/12/2025 1:00 PM CDT [facility] URINE PH 7.0 5.0 - 9.0 01/12/2025 1:00 PM CDT [facility] WBC ESTERASE Negative Negative 01/12/2025 1:00 PM CDT [facility] NITRITE Negative Negative 01/12/2025 1:00 PM CDT [facility] PROTEIN, RANDOM URINE Negative Negative 01/12/2025 1:00 PM CDT [facility] URINE GLUCOSE, QUAL Negative Negative 01/12/2025 1:00 PM CDT [facility] URINE KETONES Negative Negative 01/12/2025 1:00 PM CDT [facility] UROBILINOGEN Normal Normal mg/dL 01/12/2025 1:00 PM CDT [facility] URINE BLOOD Negative Negative xander/ul 01/12/2025 1:00 PM CDT [facility] URINALYSIS COLOR Yellow 01/13/20 1:00 PM CDT [facility] URINALYSIS CLARITY Clear 01/12/2025 1:00 PM CDT [facility] Urine URINE SPECIMEN / Unknown Non-Phlebotomy Collection / Unknown 01/12/2025 12:21 PM CDT 01/12/2025 12:21 PM CDT Amanda Conde Page PAC URINE ORDERABLES Final Resul t [facility] [place] [address] * Gold Top Tube (01/12/2025 11:04 AM CDT) Blood No Phlebotomy Charged / Unknown 01/12/2025 11:04 AM CDT 01/12/2025 11:32 AM CDT Amanda Conde Page PAC CHEMISTRY ORDERABLES Final R esult Performing Organization Address City/[facility]/ZIP Co de Phone Number [facility] [address] [place] [address] * Blue Top Tube (01/12/2025 11:04 AM CDT) Blood No Phlebotomy Charged / Unknown 01/12/2025 11:04 AM CDT 01/12/2025 11:32 AM CDT Amanda Conde Page PAC HEMATOLOGY ORDERABLES Final Result Performing Organization Address [facility] Co de Phone Number [facility] [address] [place] [address] * Lavender Top Tube (01/12/2025 11:04 AM CDT) Only the most recent of2 resultswithin the time period is included. Blood No Phlebotomy Charged / Unknown 01/12/2025 11:04 AM CDT 01/12/2025 11:32 AM CDT Amanda Esposito PAC HEMATOLOGY ORDERABLES Final Result Performing Organization Address [facility] de Phone Number [facility] [address] [place] [address] * (ABNORMAL) CBC with Auto Differential (01/12/2025 11:04 AM CDT) WBC 8.61 4.00 - 12.00 10(3)/mcL 01/12/2025 11:35 AM CDT [facility] RBC 5.05 4.40 - 5.80 10(6)/mcL 01/12/2025 11:35 AM CDT [facility] HEMOGLOBIN (HGB) 14.7 13.0 - 16.5 g/dL 01/12/2025 11:35 AM CDT [facility] HEMATOCRIT (HCT) 43.3 38.0 - 50.0 % 01/12/2025 11:35 AM CDT [facility] MCV 85.7 82.0 - 96.0 fL 01/12/2025 11:35 AM CDT [facility] MCH 29.1 26.0 - 32.0 pg 01/12/2025 11:35 AM CDT [facility] MCHC 33.9 31.0 - 36.0 g/dL 01/12/2025 11:35 AM CDT [facility] PLATELET COUNT 315 140 - 440 10(3)/[facility] 01/12/2025 11:35 AM CDT [facility] RDW 12.6 11.8 - 15.5 % 01/12/2025 11:35 AM CDT [facility] MPV 9.1 8.0 - 12.6 fL 01/12/2025 11:35 AM CDT [facility] NEUTROPHILS 43.4 40.0 - 68.0 % 01/12/2025 11:35 AM CDT [facility] LYMPHOCYTES 39.8 19.0 - 49.0 % 01/12/2025 11:35 AM CDT [facility] MONOCYTES 7.0 3.0 - 13.0 % 01/12/2025 11:35 AM CDT [facility] EOSINOPHILS 8.7(H) 0.0 - 8.0 % 01/12/2025 11:35 AM CDT [facility] BASOPHILS 0.9 0.0 - 1.0 % 01/12/2025 11:35 AM CDT [facility] IMMATURE GRANULOCYTE 0.2 0.0 - 0.4 % 01/12/2025 11:35 AM CDT [facility] ABSOLUTE NEUTROPHILS 3.73 1.40 - 5.30 10(3)/mcL 01/12/2025 11:35 AM CDT [facility] ABSOLUTE LYMPHOCYTES 3.43(H) 0.90 - 3.30 10(3)/[facility] 01/12/2025 11:35 AM CDT [facility] ABSOLUTE MONOCYTES 0.60 0.10 - 0.90 10(3)/[facility] 01/12/2025 11:35 AM CDT [facility] ABSOLUTE EOSINOPHIL 0.75(H) 0.00 - 0.50 10(3)/[facility] 01/12/2025 11:35 AM CDT [facility] ABSOLUTE BASOPHILS 0.08 0.00 - 0.10 10(3)/[facility] 01/12/2025 11:35 AM CDT [facility] ABSOLUTE IMMATURE GRANULOCYTE 0.02 0.00 - 0.03 10 (3) mcL. 01/12/2025 11:35 AM CDT [facility] NRBC PER 100 WBC 0 01/13/20 11:35 AM CDT [facility] Blood Venipuncture / Unknown 01/12/2025 11:04 AM CDT 01/12/2025 11:30 AM CDT Amanda Conde Page PAC HEMATOLOGY ORDERABLES Final Result Performing Organization Address City/[facility]/ZIP Co de Phone Number [facility] [address] [place] [address] * Lipase (01/12/2025 11:04 AM CDT) LIPASE 29 8 - 78 U/L 01/12/2025 11:54 AM CDT [facility] Blood Venipuncture / Unknown 01/12/2025 11:04 AM CDT 01/12/2025 11:30 AM CDT Amanda Conde Page PAC CHEMISTRY ORDERABLES Final R esult Performing Organization Address City/[facility]/ZIP Co de Phone Number [facility] [address] [place] [address] * CMP (01/12/2025 11:04 AM CDT) SODIUM 141 136 - 145 mmol/L 01/12/2025 11:54 AM CDT [facility] POTASSIUM 4.0 3.5 - 5.1 mmol/L 01/12/2025 11:54 AM CDT [facility] CHLORIDE 106 98 - 107 mmol/L 01/12/2025 11:54 AM T [facility] CO2, VENOUS 25 22 - 30 mmol/L 01/12/2025 11:54 AM CDT [facility] ANION GAP 14.0 <18.0 mmol/L 01/12/2025 11:54 AM CDT [facility] GLUCOSE 91 70 - 99 mg/dL 01/12/2025 11:54 AM T [facility] BUN 12 9 - 21 mg/dL 01/12/2025 11:54 AM T [facility] CREATININE, BLOOD 0.94 0.70 - 1.30 mg/dL 01/12/2025 11:54 AM T [facility] BUN/CREATININE RATIO 13 12 - 20 ratio 01/12/2025 11:54 AM [facility] TOTAL PROTEIN 7.5 6.0 - 8.0 g/dL 01/12/2025 11:54 AM T [facility] ALBUMIN 4.6 3.5 - 5.0 g/dL 01/12/2025 11:54 AM [facility] A/G RATIO 1.6 1.0 - 2.2 01/12/2025 11:54 AM T [facility] CALCIUM 9.3 8.7 - 10.5 mg/dL 01/12/2025 11:54 AM T [facility] T BILI 0.7 0.2 - 1.2 mg/dL 01/12/2025 11:54 AM T [facility] SGOT (AST) 25 <43 U/L 01/12/2025 11:54 AM T [facility] SGPT (ALT) 34 <56 U/L 01/12/2025 11:54 AM T [facility] ALKALINE PHOSPHATASE 93 40 - 150 U/L 01/12/2025 11:54 AM CDT [facility] GFR, ESTIMATED >60 >=60 01/12/2025 11:54 AM CDT [facility] Comment: Creatinine Clearance is the preferred criteria for selecting drug dose adjustments in renally impaired patients. The GFR is provided as additional pertinent clinical information. GFR is reported in mL/min/1.73 sq m. Calculation based on the 2020 Chronic Kidney Disease Epidemiology Collaboration (CKD-EPI) equation refit without adjustment for race. GFR, EST. >60 >=60 025 11:54 AM CDT [facility] Comment: Creatinine Clearance is the preferred criteria for selecting drug dose adjustments in renally impaired patients. The GFR is provided as additional pertinent clinical information. GFR is reported in mL/min/1.73 sq m. Calculation based on the 2009 Chronic Kidney Disease Epidemiology Collaboration (CKD-EPI). GFR, EST. NONAFRICAN >60 >=60 01/12/2025 11:54 AM CDT [facility] Comment: Creatinine Clearance is the preferred criteria for selecting drug dose adjustments in renally impaired patients. The GFR is provided as additional pertinent clinical information. GFR is reported in mL/min/1.73 sq m. Calculation based on the 2009 Chronic Kidney Disease Epidemiology Collaboration (CKD-EPI). Blood Venipuncture / Unknown 01/12/2025 11:04 AM CDT 01/12/2025 11:30 AM CDT us Amanda Conde Page PAC CHEMISTRY ORDERABLES Final R esult Performing Organization Address City/[facility]/ZIP Co de Phone Number [facility] [address] [place] [address] * CT - ABDOMEN/PELVIS (01/12/2025 12:00 AM CDT) 01/12/2025 us Provider Scan IMG CT ORDERABLES Final Result Performing Organization Address City/[facility]/ZIP Co de Phone Number SCAN from Last 3 Months Insurance MEDICAID [place] Care Teams Billing Representative Relationship Specialty Start Date End Date Britt Noel, CLOCK REPAIR TECHNICIAN, [employer] [address] [place] [address] PCP - General Advanced Practice Nurse 01/21/25 Skinny Johnson MD [address] [place] [phone] Consulting Physician Urology 03/04/24
== END 2025-04-09 08:09 | disposition home or self-care (01) ==
PROVIDERS: PCP Nurse Practitioner Family; Visit Provider Nurse Practitioner Family
DX: G43.919 Migraine, unspecified, intractable, without status migrainosus (principal)
CPT/HCPCS: 70470; Q9967